=== PATIENT | female | born 1995 | race Caucasian/White ===

== ENCOUNTER 2021-06-01 18:12 | Emergency (ER) | payer OTHER, MEDICAID, SELFPAY ==
[2021-06-01 18:15] VITALS: BMI 20.9
[2021-06-01 18:40] VITALS: BP 141/78; PULSE 99; RESP 18; TEMP 36.9; O2SAT 99
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
[2021-06-01 18:56] LABS: COVID19 -Nasal RAPID Negative (Negative)
[2021-06-01 19:12] LABS: Add Manual Diff / Slide Review NO; Basophils Absolute Auto 0 /uL (0-100); Basophils Percent Auto 0.3 % (0-2); Eosinophils Absolute Auto 0 /uL (0-450); Eosinophils Percent Auto 0.4 % (2-4); Hematocrit 39.6 % (36-46); Hemoglobin 13.5 g/dL (12.0-16.0); Lymphocytes Absolute Auto 2100 /uL (1100-4500); Lymphocytes Percent Auto 25.8 % (25-40); Mean Corpuscular HGB Conc 34.1 % (30-36); Mean Corpuscular Hemoglobin 31.7 PG (26-34); Mean Corpuscular Volume 92.9 fL (80-100); Monocytes Absolute Auto 600 /uL (0-900); Neutrophils Absolute Auto 5500 /uL (1500-7000); Neutrophils Percent Auto 66.5 % (50-75); Platelet Count 209 X10^3/uL (150-400); Red Blood Cell Count 4.26 X10^6/uL (4.0-5.2); Red Cell Distribution Width 12.2 % (11.6-14.8); White Blood Cell Count 8.2 X10^3/uL (4.5-11.0)
[2021-06-01 19:28] LABS: Acetaminophen < 10 ug/mL (10-30); Alanine Aminotransferase 17 IU/L (<35); Albumin 4.3 g/dL (3.5-5.0); Albumin Globulin Ratio 1.4 (1.0-2.8); Alkaline Phosphatase 49 U/L (38-126); Aspartate Aminotransferase 24 IU/L (14-36); BUN Creatinine Ratio 15.8 (6-22); Bilirubin Total 0.5 mg/dL (0.2-1.3); Blood Urea Nitrogen 12 mg/dL (7-17); Carbon Dioxide 21 mmol/L (22-32); Chloride 107 mmol/L (98-107); Estimated Glomerular Filt Rate > 60.0 mL/min (>60); Ethanol (ETOH) < 10 mg/dL; Glucose 92 mg/dL (70-100); HEMOLYSIS < 15 (0-50); Potassium 3.8 mmol/L (3.4-5.1); Salicylate < 1.0 mg/dL (<20); Sodium 139 mmol/L (137-145); Total Protein 7.3 g/dL (6.3-8.2)
[2021-06-01 19:38] LABS: UR Morphine/Opiate cutoff 300 Negative (Negative); Ur Creatinine Normal (Normal); Ur Specific Gravity Normal (Normal); Urine Amphetamines Negative (Negative); Urine Barbiturates Negative (Negative); Urine Benzodiazepines Negative (Negative); Urine Cocaine Negative (Negative); Urine MDMA Negative (Negative); Urine Methadone Negative (Negative); Urine Methamphetamines Negative (Negative); Urine Oxycodone Negative (Negative); Urine Phencyclidine Negative (Negative); Urine Tetrahydrocannabinol Negative (Negative); Urine Tricyclic Antidepressant Negative (Negative); Urine pH Normal (Normal)
[2021-06-01 19:50] LABS: Free T4, Direct Thyroxine 0.91 ng/dL (0.78-2.19)
[2021-06-01 20:04] LABS: Thyroid Stimulating Hormone 1.63 uIU/mL (0.47-4.68)
[2021-06-01 22:44] VITALS: BP 151/70; PULSE 100; O2SAT 98
--- NOTE | 2021-06-02 00:24 | PC.NURSE ---
Patient appeared to be resting comfortably. Slow and steady respirations. 1:1 sitter for safety continues.
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
[2021-06-02 12:19] VITALS: BP 135/87; PULSE 90; RESP 20; O2SAT 99
--- NOTE | 2021-06-02 15:23 | PC.NURSE ---
coloring in bed.
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
--- NOTE | 2021-06-02 18:50 | PC.NURSE ---
while talking noticed patients speech is fast and she fidgets.
--- NOTE | 2021-06-02 19:00 | PC.NURSE ---
finished dinner, used the restroom, ambulated to [facility] to wash her hands.
[2021-06-02 19:49] VITALS: BP 127/70; PULSE 75; RESP 16; TEMP 36.9; O2SAT 99
--- NOTE | 2021-06-02 19:55 | PC.NURSE ---
patient coloring in bed
--- NOTE | 2021-06-02 20:31 | PC.NURSE ---
patient lying on left side. respirations observed. easy work of breathing.
--- NOTE | 2021-06-02 20:50 | PC.NURSE ---
patient lying on right side. respirations observed.
--- NOTE | 2021-06-02 21:21 | PC.NURSE ---
patient lying on stomach. respirations observed.
--- NOTE | 2021-06-02 21:34 | PC.NURSE ---
patient lying in bed coloring.
--- NOTE | 2021-06-02 22:30 | PC.NURSE ---
patient sitting up in bed. tearful. she states I cannot sleep, I want to go home. provider aware.
[2021-06-02] MEDS: LORazepam 0.5 MG TABLET 1 MG PO (22:53)
--- NOTE | 2021-06-03 00:59 | PC.NURSE ---
Pt sleeping at this time. on continuous observation at this time.
--- NOTE | 2021-06-03 09:16 | PC.NURSE ---
Patient used our hospital phone to call her work ([employer] in [place]) to update them. Patient also asked for hot water for her coa coa. Patient is calm and cooperative.
[2021-06-03 09:25] VITALS: BP 124/81; PULSE 99; RESP 14; O2SAT 99
--- NOTE | 2021-06-03 09:49 | PC.NURSE ---
patient lying down resting
[2021-06-03 10:35] VITALS: RESP 16
--- NOTE | 2021-06-03 11:52 | PC.NURSE ---
talking with ED social science professor
[2021-06-03 12:41] LABS: Creatine Kinase 115 U/L (30-135); Magnesium 2.1 mg/dL (1.6-2.3)
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
--- NOTE | 2021-06-03 13:06 | PC.NURSE ---
RT acquiring EKG
--- NOTE | 2021-06-03 14:24 | CM.SWNOTE ---
PERMACULTURE CONTRACTOR Note PERMACULTURE CONTRACTOR calls A for voluntary bed census. PERMACULTURE CONTRACTOR calls [facility] and it is reported that their unit has beds and they can review patient. PERMACULTURE CONTRACTOR faxes clinicals. PERMACULTURE CONTRACTOR receives call from [facility] and it is reported that patient is accepted. Accepting provider is JAVI Hess. Patient can arrive at any time. Nurse to Nurse Ph. # [phone]. Patient's sister arrives to steel pickler patient's keys to move car so it does not get towed, when patient is meeting with sister their conversation escalates and patient asks sister to leave. Patient does not feel supported by sister. Plan: Patient to transfer to [facility] unit for inpatient bed. JOSHUA Laughlin
--- NOTE | 2021-06-03 14:35 | PC.NURSE ---
patient coloring while sitting in bed.
--- NOTE | 2021-06-03 15:10 | PC.NURSE ---
patient upset lying down in bed, coloring.
[2021-06-03 16:03] VITALS: BP 131/85; PULSE 96; RESP 16; TEMP 36.9; O2SAT 98
== END 2021-06-03 16:06 ==
PROVIDERS: Emergency Medicine; Emergency Provider Emergency Medicine
DX: R45.851 Suicidal ideations (principal); F32.A Depression, unspecified; F41.9 Anxiety disorder, unspecified; F43.10 Post-traumatic stress disorder, unspecified; R03.0 Elevated blood-pressure reading, without diagnosis of hypertension; Z20.822 Contact with and (suspected) exposure to COVID-19
CPT/HCPCS: 36415; 80053; 80305; 80320; 80329; 81003; 81025; 82550; 83735; 84439; 84443; 85025; 87635; 93005; 99284; C9803; G0480